=== PATIENT | female | born 1945 | race Caucasian/White ===

== ENCOUNTER 2020-01-11 07:11 | Day surgery (SDC) | payer MEDICARE, OTHER ==
[~2020-01-11 07:11] MED LIST: Lactated Ringers 1,000 ML IV SCH
[2020-01-11] MEDS ORDERED: Propofol 200 MG/20 ML SDV ONE ×2 (07:23→07:54)
[2020-01-11] MEDS ORDERED: fentaNYL 100 MCG/2 ML SDV ONE (07:24)
[2020-01-11 10:11] VITALS: BP 172/82; PULSE 84
--- NOTE | 2020-01-11 15:22 | OR ---
PREOPERATIVE DIAGNOSIS: Screening colonoscopy, history of colon polyps. POSTOPERATIVE DIAGNOSIS: Colon polyps. PROCEDURE PERFORMED: Total flexible colonoscopy. ANESTHESIA: MAC anesthesia. COMPLICATIONS: None apparent. BLOOD LOSS: Minimal. FINDINGS: 1. Hepatic flexure polyps x2, 2 mm, cold forceps. 2. Sigmoid colon polyp, 3 mm, hot snare. START TIME: 07. CECUM TIME: 0803. STOP TIME: 08. BOWEL PREP: [place] class 2. INDICATIONS FOR PROCEDURE: Mary Callaway is a 74-year-old female who is here for routine screening colonoscopy. Her last colonoscopy was 5 years ago at which point, she thinks she had some polyps. She denies any bloody or dark black stools and no change in bowel habits. She has no history of colorectal cancer. Notably, she did have a perforation back in the from what sounds like a polypectomy in the sigmoid colon. She had a temporary colostomy, but has apparently made a full recovery from this. DETAILS OF PROCEDURE: After informed consent was obtained, the patient was brought to the procedure room and placed in left lateral decubitus position. MAC anesthesia was induced by Anesthesia colleagues. The endoscope incorporated with an Endocuff device was introduced into the rectum. We had some trouble passing through the sigmoid until the scope was withdrawn and the Endocuff removed. With the Endocuff removed, the scope was passed through the sigmoid without trouble and advanced all the way to the cecum. The IC valve and appendiceal orifice were photographed. The endoscope was then slowly withdrawn and a retroflexed view was obtained. No pathologic findings were seen except for what is noted in the findings section. The patient was awoken from MAC anesthesia by Anesthesia colleagues without incident. PATHOLOGY: A) Colon, hepatic flexure polyps x2 Fragments of tubular adenomata B) Colon, sigmoid polyp Tubular adenoma Repeat colonoscopy recommended in 3 years. RKM: 01/11/2020 08:39:30 MODL: 01/11/2020 14:38:35 /[id number] DANIEL
--- NOTE | 2020-01-16 09:16 | LETTER ---
01/13/2020 RE: MARY ROBERTO CARLOS BRADLEY : 1945 [address] Bradley [address] [place] [phone] Dear Ms. Bradley: I am writing to you to inform you of the pathology results from your recent colonoscopy. You had 3 tubular adenomas. A tubular adenoma is a polyp that does not contain cancer, but it can become cancer, which is why we remove them. You will need a repeat screening colonoscopy in 3 years. Warmest regards,
== END 2020-01-11 10:21 | disposition home or self-care (01) ==
LOC: VM.SDS 07:11
PROVIDERS: ATTEND Student in an Organized Health Care Education/Training Program
DX: Z12.11 Encounter for screening for malignant neoplasm of colon (principal); D12.3 Benign neoplasm of transverse colon; D12.5 Benign neoplasm of sigmoid colon; E11.9 Type 2 diabetes mellitus without complications; I10 Essential (primary) hypertension; E78.00 Pure hypercholesterolemia, unspecified; E66.9 Obesity, unspecified; G25.81 Restless legs syndrome; G47.00 Insomnia, unspecified; K21.9 Gastro-esophageal reflux disease without esophagitis; F33.1 Major depressive disorder, recurrent, moderate; M25.542 Pain in joints of left hand; Z79.899 Other long term (current) drug therapy; Z79.4 Long term (current) use of insulin; Z88.1 Allergy status to other antibiotic agents; Z88.8 Allergy status to other drugs, medicaments and biological substances; Z86.010 Personal history of colon polyps; Z01.812 Encounter for preprocedural laboratory examination; Z20.828 Contact with and (suspected) exposure to other viral communicable diseases; Z87.11 Personal history of peptic ulcer disease; Z68.35 Body mass index [BMI] 35.0-35.9, adult
CPT/HCPCS: 00811; 82962; 88305; J2704; J3010; J7120; U0002

== ENCOUNTER 2023-10-30 06:48 | Day surgery (SDC) | payer MEDICARE, OTHER ==
[2023-10-30] MEDS: Lactated Ringers 1,000 ML IV SCH (07:04)
[2023-10-30] MEDS ORDERED: fentaNYL 100 MCG/2 ML SDV ONE (08:25)
[2023-10-30] MEDS ORDERED: Propofol 200 MG/20 ML SDV ONE (08:25)
[2023-10-30] MEDS ORDERED: Midazolam 1 MG/ML 2 ML SDV ONE (08:25)
[2023-10-30 10:12] VITALS: BP 148/67; PULSE 63
== END 2023-10-30 10:54 | disposition home or self-care (01) ==
LOC: VM.SDS 06:48
PROVIDERS: ATTEND Student in an Organized Health Care Education/Training Program
DX: Z12.11 Encounter for screening for malignant neoplasm of colon (principal); D12.3 Benign neoplasm of transverse colon; D12.2 Benign neoplasm of ascending colon; Z86.010 Personal history of colon polyps; I10 Essential (primary) hypertension; E11.9 Type 2 diabetes mellitus without complications; J45.20 Mild intermittent asthma, uncomplicated; K21.9 Gastro-esophageal reflux disease without esophagitis; E78.00 Pure hypercholesterolemia, unspecified; F33.1 Major depressive disorder, recurrent, moderate; Z87.891 Personal history of nicotine dependence; Z79.4 Long term (current) use of insulin; Z79.84 Long term (current) use of oral hypoglycemic drugs; Z79.82 Long term (current) use of aspirin; Z79.899 Other long term (current) drug therapy; Z88.8 Allergy status to other drugs, medicaments and biological substances
CPT/HCPCS: 00811; 82947; 99100; J2250; J2704; J3010; J7120